=== PATIENT | male | born 1960 | race Hispanic/Latino ===

== ENCOUNTER 2025-06-28 04:32 | Emergency (ER) | payer SELFPAY ==
[~2025-06-28] VITALS: Ht 167.6 cm; Wt 95.3 kg
[2025-06-28 04:36] VITALS: TEMP 98.4
[2025-06-28 04:54] LABS: BASOPHILS % 0.4 % (0.0-1.0); EOSINOPHILS % 0.2 % (0.0-6.0); LYMPHOCYTES % 14.9 % (18.0-39.1); MONOCYTES % 9.3 % (4.4-11.3); NEUTROPHILS % 75.1 % (38.7-80.0); RED CELL DISTRIBUTION WIDTH 13.8 % (11.7-14.4)
[2025-06-28 05:10] LABS: EST GLOMERULAR FILTRATION RATE 86.0 ML/MIN (>=60)
[2025-06-28 05:30] VITALS: BP 154/84; PULSE 73; RESP 16; O2SAT 100
== END 2025-06-28 05:53 | disposition home or self-care (01) ==
LOC: ER 04:45
DX: M54.6 Pain in thoracic spine (principal); R45.7 State of emotional shock and stress, unspecified; I10 Essential (primary) hypertension; E78.5 Hyperlipidemia, unspecified; R94.31 Abnormal electrocardiogram [ECG] [EKG]; Z95.1 Presence of aortocoronary bypass graft
CPT/HCPCS: 36415; 71045; 80053; 84484; 85025; 93005; 99284